=== PATIENT | female | born 2005 | race Hispanic/Latino ===

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

== ENCOUNTER 2024-04-16 20:46 | Emergency (ER) | payer OTHER ==
[~2024-04-16] VITALS: Ht 154.9 cm; Wt 62.0 kg
--- NOTE | ~2024-04-16 | EKG ---
[facility] [address] [facility] [place], [place] [address] Draft EK completed, results pending confirmation PATIENT NAME: ANA SORIA Electrocardiogram DATE OF : [birth year] PHYSICIAN: PRELIMINARY REPORT #: [id number] REPORT IS CONFIDENTIAL AND NOT TO BE RELEASED WITHOUT AUTHORIZATION
[~2024-04-16 20:46] MED LIST: PREMARIN0.625 MG PO
[2024-04-16] MEDS ORDERED: ondansetron HCL 4 MG/2 ML VIAL IV ONE (21:30)
[2024-04-16] MEDS ORDERED: ACETAMINOPHEN 500 MG TAB PO ONE (21:30)
[2024-04-16] MEDS ORDERED: SODIUM CHLORIDE 0.9% 1,000 ML IV ONE ×2 (21:30→23:45)
[2024-04-16 21:32] LABS: BASOPHILS 0.5 % (0-2); EOSINOPHILS 0.5 % (0-6); HEMATOCRIT 43.7 % (35.0-50.0); HEMOGLOBIN 14.8 g/dL (12.0-18.0); MCH 29.2 (27-36); MCHC 33.8 g/dl (30-36); MCV 86.4 fl (81-99); MONOCYTES 10.1 % (0-12); NEUTROPHILS 79.9 % (39-80); PLATELET COUNT 160 K/uL (140-440); RBC 5.06 M/ul (4.3-5.7); RDW 13.8 (10.5-15.0)
[2024-04-16 21:44] LABS: INR 1.19 (0.80-1.30); PROTIME 14.8 Sec (11.2-14.2)
[2024-04-16 21:46] LABS: ALBUMIN 3.5 g/dL (3.4-5.0); ALBUMIN/GLOBULIN RATIO 0.88 (1.1-2.4); ANION GAP 17.2 (7-21); BILIRUBIN, TOTAL 0.6 ng/dL (0.2-1.0); BUN/CREATININE RATIO 14.28 (6.0-28.6); CALCIUM 8.3 mg/dL (8.5-10.1); CREATININE, SERUM 0.98 mg/dL (0.55-1.02); POTASSIUM 3.2 mmol/L (3.5-5.1); PROTEIN, TOTAL 7.5 g/dL (6.4-8.2)
[2024-04-16 21:47] LABS: PARTIAL THROMBOPLASTIN TIME 33.6 Sec (22.9-41.3)
[2024-04-16 22:08] LABS: INFLUENZA B NAA NEGATIVE (NEGATIVE); RESPIRATORY SYNCYTIAL VIR NAA NEGATIVE (NEGATIVE)
[2024-04-16 22:37] LABS: BILIRUBIN, URINE NEGATIVE (negative); BLOOD/HGB, URINE MODERATE (Negative); KETONE, URINE SMALL (Negative); LEUK ESTERASE, URINE NEGATIVE (negative); NITRITE, URINE NEGATIVE (negative)
[2024-04-16 22:50] LABS: BACTERIA, URINE NONE SEEN /hpf (negative); CASTS, URINE NONE SEEN \\lpf; COLLECTION TYPE, URINE CLEAN CATCH; CRYSTALS, URINE NONE SEEN (0-1+); EPITHELIAL CELLS, URINE SQUAMOUS 2+ /lpf (0-1+); REFLEX CULTURE, URINE No (No)
[2024-04-16] MEDS ORDERED: METOPROLOL TARTRATE 5 MG/5 ML VIAL IV ONE (23:30)
[2024-04-16] MEDS ORDERED: IBUPROFEN 600 MG TAB PO ONE (23:30)
[2024-04-16] MEDS ORDERED: ONDANSETRON ODT8 MG PO (23:47)
[2024-04-16] MEDS ORDERED: TAMIFLU75 MG PO (23:47)
[2024-04-16] MEDS ORDERED: CYCLOBENZAPRINE10 MG PO (23:47)
[2024-04-17] MEDS ORDERED: ONDANSETRON 4 MG HOME.PACK SL ONE (00:15)
[2024-04-17 00:52] VITALS: BP 113/68
== END 2024-04-17 00:52 | disposition home or self-care (01) ==
LOC: ED 20:46
PROVIDERS: Family Medicine
DX: J10.1 Influenza due to other identified influenza virus with other respiratory manifestations (principal); Z88.0 Allergy status to penicillin
CPT/HCPCS: 36415; 71045; 80053; 81001; 83605; 85025; 85610; 85730; 87502; 93005; 93010; 96361; 96374; 96375; 99284-25; A9270; J2405; J7030; U0002

== ENCOUNTER 2024-05-07 13:25 | Emergency (ER) | payer OTHER ==
[~2024-05-07] VITALS: Ht 154.9 cm; Wt 60.8 kg
[~2024-05-07 13:25] MED LIST changes: +CYCLOBENZAPRINE10 MG PO; +ONDANSETRON ODT8 MG PO; +TAMIFLU75 MG PO
--- OUTSIDE RECORDS SUMMARY | 2024-05-07 13:33 | XMS ---
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 Zohreh VISIT COUNT (12 MO.) 3 [facility] TOTAL 3 NOTE: Visits indicate total known visits. ED/UCC VISIT TRACKING (12 MO.) 05/07/2024 13:27 [facility] TYPE: Emergency COMPLAINT: - VAGINAL BLEEDING 04/16/2024 20:47 [facility] [place] TYPE: Emergency COMPLAINT: - FEVER DIAGNOSES: - Allergy status to penicillin - Cough, unspecified - Fever, unspecified - Influenza due to other identified influenza virus with other respiratory manifestations 11/27/2023 00:25 [facility] [place] TYPE: Emergency COMPLAINT: - VAGINAL BLEEDING DIAGNOSES: - Abnormal uterine and vaginal bleeding, unspecified - Allergy status to penicillin - Dysmenorrhea, unspecified INPATIENT VISIT TRACKING (12 MO.) No inpatient visits to display in this time frame [email or web address]
[2024-05-07] MEDS ORDERED: PRENATAL + DHA1 EAC1 PO (14:25)
[2024-05-07 14:53] LABS: BASOPHILS 0.5 % (0-2); EOSINOPHILS 0.8 % (0-6); HEMATOCRIT 37.3 % (35.0-50.0); HEMOGLOBIN 12.8 g/dL (12.0-18.0); MCH 29.3 (27-36); MCHC 34.2 g/dl (30-36); MCV 85.8 fl (81-99); MONOCYTES 5.7 % (0-12); PLATELET COUNT 305 K/uL (140-440); RBC 4.35 M/ul (4.3-5.7); RDW 13.7 (10.5-15.0)
[2024-05-07 15:13] LABS: ABO O; RH POSITIVE
[2024-05-07 16:09] LABS: BILIRUBIN, URINE NEGATIVE (negative); BLOOD/HGB, URINE TRACE-I (Negative); KETONE, URINE NEGATIVE (Negative); LEUK ESTERASE, URINE TRACE (negative); NITRITE, URINE NEGATIVE (negative)
[2024-05-07 16:15] LABS: BACTERIA, URINE RARE /hpf (negative); CRYSTALS, URINE NONE SEEN (0-1+); EPITHELIAL CELLS, URINE SQUAMOUS 1+ /lpf (0-1+); RED BLOOD CELLS, URINE 0-1 /hpf (0-5)
[2024-05-07 16:16] LABS: CASTS, URINE NONE SEEN \\lpf; COLLECTION TYPE, URINE CLEAN CATCH; REFLEX CULTURE, URINE No (No)
[2024-05-07] MEDS ORDERED: CEPHALEXIN500 M1 PO (16:20)
[2024-05-07] MEDS ORDERED: CEPHALEXIN MONOHYDRATE 500 MG CAP PO ONE (16:30)
[2024-05-07 16:46] VITALS: BP 111/67
== END 2024-05-07 16:47 | disposition home or self-care (01) ==
LOC: ED 13:25
PROVIDERS: Emergency Medicine
DX: O46.91 Antepartum hemorrhage, unspecified, first trimester (principal); O23.41 Unspecified infection of urinary tract in pregnancy, first trimester; N39.0 Urinary tract infection, site not specified; Z3A.08 8 weeks gestation of pregnancy; Z88.0 Allergy status to penicillin; Z79.899 Other long term (current) drug therapy
CPT/HCPCS: 36415; 81001; 84702; 85025; 86900; 86901; 99284; A9270

== ENCOUNTER 2025-01-10 21:36 | Emergency (ER) | payer OTHER ==
[~2025-01-10] VITALS: Ht 154.9 cm; Wt 61.0 kg
[~2025-01-10 21:36] MED LIST changes: +CEPHALEXIN500 M1 PO; +PRENATAL + DHA1 EAC1 PO
--- OUTSIDE RECORDS SUMMARY | 2025-01-10 21:42 | XMS ---
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 [facility]ohre[facility] (12 MO.) [facility] NOTE: Visits indicate total known visits. ED/UCC VISIT TRACKING (12 MO.) 01/10/2025 21:36 [facility] TYPE: Emergency COMPLAINT: - ARM PAIN [facility] Emergency DIAGNOSES: - Phlebitis and thrombophlebitis of other sites - Arm Swelling - wound check 05/07/2024 13:27 [facility] TYPE: Emergency COMPLAINT: - VAGINAL BLEEDING DIAGNOSES: - 8 weeks gestation of - Allergy status to penicillin - Antepartum hemorrhage, unspecified, first trimester - Other care home (current) drug therapy - Unspecified infection of urinary tract in , first trimester - Urinary tract infection, site not specified 04/16/2024 20:47 [facility] TYPE: Emergency COMPLAINT: - FEVER DIAGNOSES: - Allergy status to penicillin - Cough, unspecified - Fever, unspecified - Influenza due to other identified influenza virus with other respiratory manifestations INPATIENT VISIT TRACKING (12 MO.) 12/18/2024 03:05 [facility] ([place]) TYPE: Sleep Lab DIAGNOSES: - Acute posthemorrhagic anemia - Chorioamnionitis, third trimester, not applicable or unspecified - COVID-19 - Encounter for delivery without indication - Labor and delivery complicated by stress, unspecified - Sepsis, unspecified organism - Severe sepsis without septic shock - Rupture of Membranes [email or web address]
[2025-01-10 22:00] LABS: BASOPHILS 0.8 % (0.1-1.2); EOSINOPHILS 1.5 % (0.7-5.8); LYMPHOCYTES 34.8 % (19.3-51.7); MCH 27.2 PG (25.6-32.2); MCHC 31.4 g/dL (32.2-35.5); MCV 86.8 fL (79.4-94.8); MONOCYTES 5.2 % (4.7-12.5); NEUTROPHILS 57.4 % (34.0-71.1); RBC 4.48 M/uL (3.93-5.22)
[2025-01-10 22:05] LABS: PROTEIN, RANDOM URINE 16.0 mg/dL (NOT ESTABLISHED)
[2025-01-10 22:15] LABS: ALT (SGPT) 22.0 U/L (14-59); AST (SGOT) 21.0 U/L (15-37); GLOMERULAR FILTRATION RATE,EST 112.0 mL/min (>60); LACTATE DEHYDROGENASE 183.0 U/L (81-234); PROTEIN, TOTAL 7.3 g/dL (6.4-8.2); UREA NITROGEN 14.0 mg/dL (7-18)
[2025-01-10] MEDS ORDERED: CYCLOBENZAPRINE HCL 10 MG HOME.PACK PO ONE (22:30)
[2025-01-10] MEDS ORDERED: POTASSIUM CHLORIDE 10 MEQ TABCR PO ONE (22:30)
[2025-01-10 22:57] VITALS: BP 116/65
== END 2025-01-10 22:58 | disposition home or self-care (01) ==
LOC: ED 21:36
PROVIDERS: Family Medicine
DX: O87.0 Superficial thrombophlebitis in the puerperium (principal); I80.8 Phlebitis and thrombophlebitis of other sites; O90.81 Anemia of the puerperium; D64.9 Anemia, unspecified; Z88.0 Allergy status to penicillin
CPT/HCPCS: 36415; 80053; 82570; 83615; 84156; 84550; 85025; 85379; A9270